=== PATIENT | male | born 1995 | race African-American/Black ===

== ENCOUNTER → 2019-02-11 | Emergency (ER) | payer SELFPAY ==
[~2019-02-11] VITALS: Ht 185.4 cm; Wt 96.2 kg
[~2019-02-11] MED LIST: AMOX500C2 PO; LIDOCAINE/EPI 2% 1:100,00 (XYLOCAINE) 20 ML VIAL INJ ONE; TETANUS,DIPTH,PERTUSS P/F (BOOSTRIX) 0.5 ML VIAL IM ONE
--- NOTE | 2019-02-11 04:22 | NUR ---
pt here with a coworker who is staying in the w/r. pt alert gcs 15. approx 0400 pt was working and cut left hand with a slicer. dr in [place] pt same time. pt has a full thickness 2 inch x 1 inch bleeding laceration to left hand prox knuckle anterior thumb. bleeding controlled with direct pressure. pt works at [employer]. positive pulse and sensation left hand. pt unsure of last tetanus. denies alcohol and illegal drugs. pt emplyer called in earlier and said pt need drug screen and alcohol test. done dwaine pt at 0428.
--- NOTE | 2019-02-11 04:31 | ED Integumentary General ---
General Stated Complaint: LEFT HAND LACERATION Source: patient, other Exam Limitations: no limitations History of Present Illness Date Seen by Provider: Feb 11, 2019 Time Seen by Provider: 04:18 Initial Comments Patient presents to ER by private conveyance with chief complaint of a laceration on his left lateral thumb. He kept his thumb with a roll slicing machine. Happened just before arrival at [facility]. He applied direct pressure and gauze and obtain controlled bleeding. He does not the last time he had a tetanus shot. No significant medical or surgical history. He does smoke about half pack cigarettes a day but denies alcohol or drug use. Allergies and Home Medications Allergies Coded Allergies: No Known Drug Allergies (Unverified , 02/11/19) Patient Home Medication List Home Medication List Reviewed: Yes Review of Systems Review of Systems Constitutional: No chills, No diaphoresis EENTM: No ear discharge, No ear pain Respiratory: No cough, No short of breath Cardiovascular: No chest pain, No edema Gastrointestinal: No abdominal pain, No nausea Past Kumnolw-Nsnxtu-Ycjhlj Hx Patient Social History Alcohol Use: Denies Use Recreational Drug Use: No Smoking Status: Current Everyday Smoker Type Used: Cigarettes (half-pack per day) Recent Foreign Travel: No Contact w/Someone Who Travel: No Physical Exam Vital Signs Capillary Refill : General Appearance: WD/WN, no apparent distress Cardiovascular: normal peripheral pulses, regular rate, rhythm, no edema Respiratory: no respiratory distress, no accessory muscle use Extremities: normal range of motion, non-tender, normal capillary refill, other (no evidence of acute tendon laceration.) Neurologic/Psychiatric: no motor/sensory deficits, alert, oriented x 3 Skin: other (3 cm linear, subcutaneous laceration over the left hand first digit first phalanx laterally. No obvious contamination.) Procedures/Interventions Wound Location: Upper Extremities Other Wound Location Left hand first digit first phalanx Wound Length (cm): 3 Wound's Depth, Shape: linear, sub Q Wound Explored: clean Irrigated w/ Saline (ccs): 100 Anesthesia: Lidocaine w/ Epi (2%) Volume Anesthetic (ccs): 4 Suture: Prolene Suture Size: 4-0 Number of Sutures: 4 Progress Patient's wound was cleaned thoroughly using chlorhexidine and sterile saline. We then infiltrated the wound edges with 2% lidocaine with epinephrine 4 cc total. Most of it ran out the wound. When his wound was numb we then thoroughly clean explored the very shallow wound. No foreign debris was noted. Wound was thoroughly cleaned and flushed and skin edges were reapproximated and held in place using 4 simple, interrupted stitches made with 4-0 Prolene. Patient tolerated procedure well. He then went to the sink and washed his hands with regular soap and water and a dressing was placed over top of triple antibiotic ointment. Wound was hemostatic. Progress/Results/Core Measures Results/Orders My Orders Orders - JACOB PLASCENCIA Lidocaine/Epi 2% 1:100,000 (Xylocaine/Ep (02/11/19 04:30) Dipht,Pertuss(Acell),Tet Adult (Boostrix (02/11/19 04:30) Medications Given in ED Current Medications Medications Dose Ordered Sig/Michael Route Start Time Stop Time Status Last Admin Dose Admin Diphtheria/ Tetanus/Acell Pertussis 0.5 ml ONCE ONCE IM 02/11/19 04:30 02/11/19 04:32 DC 02/11/19 04:34 0.5 ML Lidocaine/ Epinephrine 20 ml ONCE ONCE INJ 02/11/19 04:30 02/11/19 04:32 DC 02/11/19 04:39 20 ML Progress Progress Note : Time: 04:30 Progress Note Initial clean the wound with chlorhexidine and sterile saline. We then we will infiltrate the wound with some 2% lidocaine with epinephrine to obtain control the bleeding and then apply Simple Interrupted Sutures. Departure Impression Primary Impression: Laceration of hand Qualified Codes: S61.412A - Laceration without foreign body of left hand, initial encounter Disposition: 01 HOME, SELF-CARE Condition: Improved Departure-Patient Inst. Decision time for Depature: 04:50 Referrals: [facility] (PCP/Family) Primary Care Physician Patient Instructions: Laceration Repair With Stitches (DC) Add. Discharge Instructions: Keep the wound clean with regular soap and water and apply a thin dollop of Vaseline under a bandage was changed daily or as often as it becomes soiled. Follow-up in the ER or with your primary doctor for his suture removal in 10-[address] 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 If you begin to have increasing redness, swelling, pain, fever or discharge from the wound then you need to be checked out by a doctor that day. If you have increasing pain and swelling you can elevate the hand above the level of your heart. For the first 2 days minimal eyes or use of your left hand as this will increase blood flow and increased the likelihood of bleeding, swelling and pain. Scripts Amoxicillin (Amoxicillin) 500 Mg Capsule 500 MG PO TID for 3 Days, #9 CAP 0 Refills Prov: JACOB PLASCENCIA 02/11/19 Work/School Note: Work Release Form Date Seen in the Emergency Department: Feb 11, 2019 Return to Work: Feb 12, 2019 Restrictions: Need Release from Doctor Other Restrictions Listed Below: Minimize use of left hand until 02/13/19. Keep clean dressing on left hand. JACOB PLASCENCIA Feb 11, 2019 04:31
--- NOTE | 2019-02-11 04:34 | NUR ---
lisa to room for
--- NOTE | 2019-02-11 04:37 | NUR ---
other staff called in occ med for uds and alcohol. pt employer called in earlier needs the tests.
--- NOTE | 2019-02-11 04:53 | NUR ---
dr placed 4 sutures with 4/o proline dr cleaned wound before and tech bandaged wound affter.
[2019-02-11 05:04] VITALS: BP 131/89
--- NOTE | 2019-02-11 05:04 | NUR ---
d/c instructions to pt. told to read all papers. scripts faxed. pt knows f/u. i went over the handtyped by information on the chart. pt had no iv. work release given. workmans comp paper given. xtra supplied for home wound care given.
--- NOTE | 2019-02-11 05:08 | NUR ---
occ. medicine staff here to take pt.
--- OUTSIDE RECORDS SUMMARY | 2019-02-11 06:30 | XMS REPORT ---
Author Author REGLA QUIÑONES [facility] Address [address] [place] [address] Phone Unavailable Care Team Providers Care Paralegal Supervisor Name Role Phone REGLA QUIÑONES Unavailable Unavailable PROBLEMS Type Condition ICD9-CM Code [id number] Code Onset Dates Condition Status SNOMED Code Problem Unspecified episodic mood disorder 296.90 Active 652374320 Problem Anxiety state, unspecified 300.00 Active 105609889 Problem Other psychological or physical stress, not elsewhere classified V62.89 Active 85120372 Problem Screening examination for venereal disease V74.5 Active 221055884 Problem Rash and other nonspecific skin eruption 782.1 Active 694501996 Problem Problems related to high-risk sexual behavior V69.2 Active 960284225 ALLERGIES No Known Allergies ENCOUNTERS Encounter Location Date Diagnosis [facility] [address] [id number] Aug, Oral health maintenance status requiring routine preventive dental care K08.9 and Arrested dental caries K02.3 [facility] [address] [address] Jul, [facility] [address] [address] Jul, [facility] [id number] [address] January, [facility] [id number] [place] [address] January, [facility] [id number] [place] [address] January, [facility] [address] [address] January, [facility] [id number] [place] [address] January, [facility] [address] [facility] [id number] [place] [address] January, [facility] [address] [id number] [place] [address] January, [facility] [address] [facility] [id number] [place] [address] January, [facility] [address] [facility] [id number] [place] [address] January, [facility] [address] [id number] [place] [address] Dec, [facility] [address] [facility] [id number] [place] [address] Dec, [facility] [address] [facility] [id number] [place] [address] Nov, [facility] [address] [facility] [id number] [address] Nov, [facility] [address] [facility] [id number] [place] [address] Oct, [facility] [address] [facility] [id number] [address] Oct, [facility] [address] [facility] [id number] [address] Feb, [facility] [address] [facility] [id number] [address] Feb, [facility] [address] [facility] [id number] [address] Feb, [facility] [address] [facility] [id number] [address] Aug, [facility] [address] [facility] [id number] [address] Aug, IMMUNIZATIONS No Known Immunizations SOCIAL HISTORY Never Assessed REASON FOR VISIT PLAN OF CARE Activity Details Follow Up PRN Reason:Patient will call for appt. VITAL SIGNS MEDICATIONS Unknown Medications RESULTS No Results PROCEDURES Procedure Date Ordered Result Body Site Full mouth debridement Aug 17, 2018 TOPICAL FLUORIDE VARNISH Aug 17, 2018 INTERIM CARIES ARRESTING MED APPLIC Aug 17, 2018 INTERIM CARIES ARRESTING MED APPLIC Aug 17, 2018 Dental Outreach adjust balance Aug 17, 2018 Billing Notes on claim Aug 17, 2018 INSTRUCTIONS MEDICATIONS ADMINISTERED No Known Medications MEDICAL (GENERAL) HISTORY Type Description Date Medical History Undergoing treatment for addiction-08/29 Surgical History No know Surgical history
--- OUTSIDE RECORDS SUMMARY | 2019-02-11 06:30 | XMS REPORT ---
Author Author Migration, Doctor Organization [facility] Address Unknown Phone Unavailable Care Team Providers Care Leadite Man Name Role Phone Migration, Doctor Unavailable Unavailable PROBLEMS Type Condition ICD9-CM Code [id number] Code Onset Dates Condition Status SNOMED Code Problem Anxiety state, unspecified 300.00 Active 397701223 Problem Unspecified episodic mood disorder 296.90 Active 008971552 Problem Screening examination for venereal disease V74.5 Active 095588184 Problem Other psychological or physical stress, not elsewhere classified V62.89 Active 17281601 Problem Problems related to high-risk sexual behavior V69.2 Active 312432013 Problem Rash and other nonspecific skin eruption 782.1 Active 577788706 ALLERGIES No Information ENCOUNTERS Encounter Location Date Diagnosis [facility] [id number] [place] [address] Sep, [facility] [address] [id number] Aug, Oral health maintenance status requiring routine preventive dental care K08.9 and Arrested dental caries K02.3 [facility] [id number] [place] [address] Jul, [facility] [id number] [place] [address] Jul, [facility] [id number] [place] [address] January, [facility] [id number] [place] [address] January, [facility] [id number] [place] [address] January, [facility] [id number] [place] [address] January, [facility] [place] [facility] [address] [id number] [place] [address] January, [facility] [address] [id number] [place] [address] January, [facility] [address] [id number] [place] [address] January, [facility] [address] [id number] [place] [address] January, [facility] [address] [id number] [place] [address] January, [facility] [address] [id number] [place] [address] Dec, [facility] [address] [id number] [place] [address] Dec, [facility] [address] [id number] [place] [address] Nov, [facility] [address] [id number] [place] [address] Nov, [facility] [address] [id number] [place] [address] Oct, [facility] [address] [id number] [place] [address] Oct, [facility] [address] [id number] [place] [address] Feb, [facility] [place] [facility] [address] [id number] [place] [address] Feb, [facility] [place] [facility] [address] [id number] [place] [address] Feb, [facility] [place] [facility] [address] [id number] [place] [address] Aug, [facility] [place] [facility] [address] [id number], [place] [address] Aug, IMMUNIZATIONS No Known Immunizations SOCIAL HISTORY Never Assessed REASON FOR VISIT EMR-[facility] PLAN OF CARE VITAL SIGNS MEDICATIONS No Known Medications RESULTS No Results PROCEDURES No Known procedures INSTRUCTIONS MEDICATIONS ADMINISTERED No Known Medications MEDICAL (GENERAL) HISTORY Type Description Date Medical History Undergoing treatment for addiction-08/29 Surgical History No Surgical history information
--- OUTSIDE RECORDS SUMMARY | 2019-02-11 06:30 | XMS REPORT ---
Author Author Migration, Doctor Organization [facility] Address Unknown Phone Unavailable Care Team Providers Care Maintenance Shop Technician Name Role Phone Migration, Doctor Unavailable Unavailable PROBLEMS Type Condition ICD9-CM Code PQJ43-XT Code Onset Dates Condition Status SNOMED Code Problem Anxiety state, unspecified 300.00 Active 447145329 Problem Unspecified episodic mood disorder 296.90 Active 258802409 Problem Screening examination for venereal disease V74.5 Active 999330637 Problem Other psychological or physical stress, not elsewhere classified V62.89 Active 65078371 Problem Problems related to high-risk sexual behavior V69.2 Active 893590064 Problem Rash and other nonspecific skin eruption 782.1 Active 465179007 ALLERGIES No Information ENCOUNTERS Encounter Location Date Diagnosis [facility] [id number] [place] [address] Sep, [facility] [address] [id number] Aug, Oral health maintenance status requiring routine preventive dental care K08.9 and Arrested dental caries K02.3 [facility] [id number] [place] [address] Jul, [facility] [id number] [place] [address] Jul, [facility] [id number] [place] [address] January, [facility] [id number] [place] [address] January, [facility] [id number] [place] [address] January, [facility] [id number] [place] [address] January, [facility] [place] [facility] [address] [id number] [place] [address] January, [facility] [address] [id number] [place] [address] January, [facility] [address] [id number] [place] [address] January, [facility] [address] [id number] [place] [address] January, [facility] [address] [id number] [place] [address] January, [facility] [address] [id number] [place] [address] Dec, [facility] [address] [id number] [place] [address] Dec, [facility] [address] [id number] [place] [address] Nov, [facility] [address] [id number] [place] [address] Nov, [facility] [address] [id number] [place] [address] Oct, [facility] [address] [id number] [place] [address] Oct, [facility] [address] [id number] [place] [address] Feb, [facility] [place] [facility] [address] [id number] [place] [address] Feb, [facility] [place] [facility] [address] [id number] [place] [address] Feb, [facility] [place] [facility] [address] [id number] [place] [address] Aug, [facility] [place] [facility] [address] [id number], [place] [address] Aug, IMMUNIZATIONS No Known Immunizations SOCIAL HISTORY Never Assessed REASON FOR VISIT EMR-[facility] PLAN OF CARE VITAL SIGNS MEDICATIONS No Known Medications RESULTS No Results PROCEDURES No Known procedures INSTRUCTIONS MEDICATIONS ADMINISTERED No Known Medications MEDICAL (GENERAL) HISTORY Type Description Date Medical History Undergoing treatment for addiction-08/29 Surgical History No Surgical history information
--- OUTSIDE RECORDS SUMMARY | 2019-02-11 06:30 | XMS REPORT ---
Author Author Migration, Doctor Organization [facility] Address Unknown Phone Unavailable Care Team Providers Care Manager Field Investigations Name Role Phone Migration, Doctor Unavailable Unavailable PROBLEMS Type Condition ICD9-CM Code [id number] Code Onset Dates Condition Status SNOMED Code Problem Anxiety state, unspecified 300.00 Active 769637777 Problem Unspecified episodic mood disorder 296.90 Active 229176481 Problem Screening examination for venereal disease V74.5 Active 184411864 Problem Other psychological or physical stress, not elsewhere classified V62.89 Active 85759866 Problem Problems related to high-risk sexual behavior V69.2 Active 414526710 Problem Rash and other nonspecific skin eruption 782.1 Active 935749834 ALLERGIES No Information ENCOUNTERS Encounter Location Date Diagnosis [facility] [id number] [place] [address] Sep, [facility] [address] [id number] Aug, Oral health maintenance status requiring routine preventive dental care K08.9 and Arrested dental caries K02.3 [facility] [id number] [place] [address] Jul, [facility] [id number] [place] [address] Jul, [facility] [id number] [place] [address] January, [facility] [id number] [place] [address] January, [facility] [id number] [place] [address] January, [facility] [id number] [place] [address] January, [facility] [place] [facility] [address] [id number] [place] [address] January, [facility] [address] [id number] [place] [address] January, [facility] [address] [id number] [place] [address] January, [facility] [address] [id number] [place] [address] January, [facility] [address] [id number] [place] [address] January, [facility] [address] [id number] [place] [address] Dec, [facility] [address] [id number] [place] [address] Dec, [facility] [address] [id number] [place] [address] Nov, [facility] [address] [id number] [place] [address] Nov, [facility] [address] [id number] [place] [address] Oct, [facility] [address] [id number] [place] [address] Oct, [facility] [address] [id number] [place] [address] Feb, [facility] [place] [facility] [address] [id number] [place] [address] Feb, [facility] [place] [facility] [address] [id number] [place] [address] Feb, [facility] [place] [facility] [address] [id number] [place] [address] Aug, [facility] [place] [facility] [address] [id number] [address] Aug, IMMUNIZATIONS No Known Immunizations SOCIAL HISTORY Never Assessed REASON FOR VISIT EMR-[facility] PLAN OF CARE VITAL SIGNS MEDICATIONS No Known Medications RESULTS No Results PROCEDURES No Known procedures INSTRUCTIONS MEDICATIONS ADMINISTERED No Known Medications MEDICAL (GENERAL) HISTORY Type Description Date Medical History Undergoing treatment for addiction-08/29 Surgical History No Surgical history information
== END | disposition home or self-care (01) ==
LOC: EDUNIT# 04:16 → ER 04:19
DX: S61.112A Laceration without foreign body of left thumb with damage to nail, initial encounter (principal); F17.210 Nicotine dependence, cigarettes, uncomplicated; Z23 Encounter for immunization; W29.0XXA Contact with powered kitchen appliance, initial encounter
CPT/HCPCS: 12051; 64450; 90471; 90715

== ENCOUNTER 2021-02-28 22:13 | Emergency (ER) | payer BC, OTHER ==
[~2021-02-28] VITALS: Ht 182 cm; Wt 95.0 kg
[~2021-02-28 22:13] MED LIST changes: -LIDOCAINE/EPI 2% 1:100,00 (XYLOCAINE) 20 ML VIAL INJ ONE; -TETANUS,DIPTH,PERTUSS P/F (BOOSTRIX) 0.5 ML VIAL IM ONE
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
[2021-02-28] MEDS ORDERED: fentaNYL INJ 100 MCG/2 ML AMP IVP ONE ×2 (22:30→23:15)
[2021-02-28] MEDS ORDERED: proPOfol 200 MG/20 ML (DIPRIVAN) VIAL IV ONE ×2 (23:08→23:15)
[2021-02-28] MEDS ORDERED: NS IV 1000 ML 1,000 ML ONE (23:09)
[2021-03-01] MEDS ORDERED: TETANUS,DIPTH,PERTUSS P/F (BOOSTRIX) 0.5 ML VIAL IM ONE (00:15)
[2021-03-01 00:22] VITALS: BP 109/58
--- NOTE | 2021-03-01 07:38 | Diagnostic Imaging Report ---
INDICATION: Shoulder dislocation, post reduction TECHNIQUE: Single post reduction views of the left shoulder 11:40 PM CORRELATION STUDY: 02/28/2021 FINDINGS: There has been apparent satisfactory reduction appreciated at left shoulder dislocation as demonstrated on single projection. No definite evidence for acute displaced fracture. The visualized soft tissues are unremarkable. IMPRESSION: 1. Satisfactory reduction left shoulder dislocation. Dictated by: Dictated on workstation # [id number]
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
== END 2021-03-01 00:22 | disposition home or self-care (01) ==
LOC: ER 22:13 → EDUNIT# 22:13 → ER 03-01 00:22
DX: S00.11XA Contusion of right eyelid and periocular area, initial encounter (principal); S43.005A Unspecified dislocation of left shoulder joint, initial encounter; H11.31 Conjunctival hemorrhage, right eye; S80.212A Abrasion, left knee, initial encounter; Y04.2XXA Assault by strike against or bumped into by another person, initial encounter
CPT/HCPCS: 73020; 73030

== ENCOUNTER 2022-03-02 15:40 | Emergency (ER) | payer BC ==
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
--- NOTE | 2022-03-02 16:16 | Diagnostic Imaging Report ---
Indication: Left shoulder injury from a fall 3 views of left shoulder shows anterior dislocation of the left shoulder. No appreciable fracture. IMPRESSION: Anterior dislocation of the left shoulder Dictated by: Dictated on workstation # [id number]
[2022-03-02] MEDS ORDERED: fentaNYL INJ 100 MCG/2 ML AMP IVP ONE ×2 (16:30→17:00)
[2022-03-02] MEDS ORDERED: MIDAZOLAM 2 MG/2 ML (VERSED) VIAL IVP ONE ×2 (16:30)
[2022-03-02] MEDS ORDERED: NS IV 1000 ML 1,000 ML ONE (16:33)
[2022-03-02] MEDS ORDERED: fentaNYL INJ 100 MCG/2 ML AMP ONE (16:45)
[2022-03-02] MEDS ORDERED: ETOMIDATE IV SOLN 20 MG/10 ML VIAL ONE (16:48)
[2022-03-02] MEDS ORDERED: ETOMIDATE IV SOLN 20 MG/10 ML VIAL IV ONE (17:00)
[2022-03-02] MEDS ORDERED: NS IV 1000 ML 1,000 ML IV ONE (17:00)
--- NOTE | 2022-03-02 17:10 | Diagnostic Imaging Report ---
INDICATION: Postreduction imaging status post shoulder dislocation. EXAMINATION: Left shoulder 03/02/2022 COMPARISON: 02/28/2021 FINDINGS: There is a single view provided limiting evaluation. On this single view, the humerus appears well aligned with the glenoid. Alignment in the AP dimension cannot be evaluated. There is a linear density inferior border of the glenoid consistent with an osseous Bankart lesion. There is a large Hill-Sachs deformity along the superolateral border of the posterior humeral head. Remaining osseous structures intact. IMPRESSION: 1. Hill-Sachs deformity as well as an osseous Bankart lesion with better alignment of the shoulder joint. Dictated by: Dictated on workstation # [id number]
[2022-03-02 18:23] VITALS: BP 121/71
== END 2022-03-02 18:23 | disposition home or self-care (01) ==
LOC: EDUNIT# 15:40 → ER 15:41
DX: S43.015A Anterior dislocation of left humerus, initial encounter (principal); F17.210 Nicotine dependence, cigarettes, uncomplicated; F17.290 Nicotine dependence, other tobacco product, uncomplicated; X58.XXXA Exposure to other specified factors, initial encounter
CPT/HCPCS: 73020; 73030; 93041; 99285; A4565